=== PATIENT | male | born 1945 | race Caucasian/White ===

== ENCOUNTER 2021-07-01 11:08 | Day surgery (SDC) | payer MEDICARE ==
[~2021-07-01] VITALS: Ht 180.3 cm; Wt 75.0 kg
[2021-07-01] VITALS (8 sets, daily range): BP systolic 145–163; BP diastolic 42–67
[2021-07-01] MEDS ORDERED: normal saline 1000ml 1,000 ML IV SCH (11:35)
[2021-07-01] MEDS ORDERED: VANCOMYCIN 1,500MG inj. 1,500 MG in normal saline 500ml IV soln 300 ML IV ONE (12:00)
[2021-07-01] MEDS ORDERED: cefazolin/dext.iso 2gm/50ml 50 ML IV ONE (12:00)
[2021-07-01 12:23] LABS: BASOPHILS % (AUTO) 0.7 % (0-1); EOSINOPHILS # (AUTO) 0.1 X10'3 (0-0.9); EOSINOPHILS % (AUTO) 0.9 % (0-6); HEMATOCRIT 40.6 % (42.0-52.0); HEMOGLOBIN 13.5 g/dl (14.0-17.9); LYMPHOCYTES # (AUTO) 0.9 X10'3 (1.1-4.8); LYMPHOCYTES % (AUTO) 12.9 % (21-51); MEAN CORPUSCULAR HGB CONC 33.3 g/dL (33.0-36.5); MEAN PLATELET VOLUME 10.7 FL (7.4-10.4); MONOCYTES # (AUTO) 0.5 X10'3 (0-0.9); MONOCYTES % (AUTO) 7.6 % (2-12); NEUTROPHILS # (AUTO) 5.6 X10'3 (1.8-7.7); NEUTROPHILS % (AUTO) 77.9 % (42-75); PLATELET COUNT 152 X10'3 (140-440); RED BLOOD COUNT 4.23 X10'6 (4.70-6.10); RED CELL DISTRIBUTION WIDTH 13.8 % (11.5-14.5); WHITE BLOOD COUNT 7.2 X10'3 (4.5-11.0)
[2021-07-01] MEDS ORDERED: ATOR40TA PO (12:24)
[2021-07-01] MEDS ORDERED: ALB0.5UD IH (12:24)
[2021-07-01] MEDS ORDERED: elderberry PO (12:24)
[2021-07-01] MEDS ORDERED: OMEG-133 PO (12:24)
[2021-07-01] MEDS ORDERED: VITA80008 PO (12:24)
[2021-07-01] MEDS ORDERED: XAL0.005OS OP (12:24)
[2021-07-01] MEDS ORDERED: Magnesium Chloride PO (12:24)
[2021-07-01] MEDS ORDERED: Calcium PO (12:24)
[2021-07-01] MEDS ORDERED: ALOG25TA PO (12:24)
[2021-07-01] MEDS ORDERED: METF-438 PO (12:24)
[2021-07-01] MEDS ORDERED: ALPH600C3 PO (12:24)
[2021-07-01] MEDS ORDERED: FLO0.4C PO (12:24)
[2021-07-01] MEDS ORDERED: PIOG15TA8 PO (12:24)
[2021-07-01] MEDS ORDERED: LISI40TA13 PO (12:24)
[2021-07-01] MEDS ORDERED: ASPI-1265 PO (12:24)
[2021-07-01] MEDS ORDERED: Echinacea PO (12:24)
[2021-07-01] MEDS ORDERED: EVENING PRIMROSE PO (12:24)
[2021-07-01] MEDS ORDERED: ERGO400C PO (12:24)
[2021-07-01] MEDS ORDERED: INSU100I25 SQ (12:24)
[2021-07-01] MEDS ORDERED: VITA1TAB37 PO (12:24)
[2021-07-01 13:03] LABS: ALBUMIN 3.2 G/DL (3.4-5.0); ANION GAP 9 (8-16); BLOOD UREA NITROGEN 22 MG/DL (7-18); BUN/CREATININE RATIO 18.8 (5.4-32.0); CALCIUM 8.4 MG/DL (8.5-10.1); CHLORIDE 108 MMOL/L (99-107); CREATININE 1.17 MG/DL (0.60-1.10); GLUCOSE 274 MG/DL (70-104); MAGNESIUM 1.4 MG/DL (1.5-2.4); POTASSIUM 4.4 MMOL/L (3.5-5.1); SODIUM 142 MMOL/L (135-145); TOTAL CARBON DIOXIDE 25.4 MMOL/L (24-32); eGFR 60 ML/MIN
[2021-07-01] MEDS ORDERED: midazolam 1 mg/ML 2ml injection ONE ×3 (14:34→15:27)
[2021-07-01] MEDS ORDERED: fentaNYL/PF 50MCG/1 ML 2ML syringe ONE ×2 (14:34→15:07)
[2021-07-01] MEDS ORDERED: proCHLORperazine 10 MG/2 ml inj ONE (14:34)
[2021-07-01] MEDS ORDERED: vancomycin 1,000mg inj ONE (14:35)
[2021-07-01] MEDS ORDERED: LIDOcaine 1% w/EPI 1:100,000 30ml vial (MDV) ONE (14:36)
[2021-07-01] MEDS ORDERED: HYDROcodone/acetaminophen 5mg/325mg tablet PO PRN (16:30)
[2021-07-01] MEDS ORDERED: HYDROcodone/acetaminophen 10/325mg tab PO PRN (16:30)
== END 2021-07-01 18:45 | disposition home or self-care (01) ==
LOC: SSTAY O 11:08
PROVIDERS: ATTEND Internal Medicine Cardiovascular Disease
DX: I44.1 Atrioventricular block, second degree (principal); I25.118 Atherosclerotic heart disease of native coronary artery with other forms of angina pectoris; I10 Essential (primary) hypertension; E78.5 Hyperlipidemia, unspecified; E11.9 Type 2 diabetes mellitus without complications; N40.0 Benign prostatic hyperplasia without lower urinary tract symptoms; J44.9 Chronic obstructive pulmonary disease, unspecified; Z95.5 Presence of coronary angioplasty implant and graft; Z79.82 Long term (current) use of aspirin; Z79.84 Long term (current) use of oral hypoglycemic drugs; Z79.899 Other long term (current) drug therapy; Z87.891 Personal history of nicotine dependence; Z72.89 Other problems related to lifestyle; Z98.890 Other specified postprocedural states
CPT/HCPCS: 33208; 36415; 71045; 80048; 83735; 85025; 85610; 99152; 99153; C1785; C1898; J0780; J2250; J3010; J3370; A4565; A4620; A6449